=== PATIENT | male | born 1980 | race Caucasian/White ===

== ENCOUNTER → 2022-04-05 08:34 | Outpatient (BNVA) | payer BC, SELFPAY | PROVIDERS: Family Provider Family Medicine; PCP Family Medicine; Visit Provider Family Medicine | DX: Z00.00 Encounter for general adult medical examination without abnormal findings (principal); Z13.6 Encounter for screening for cardiovascular disorders | CPT/HCPCS: 80053; 80061 ==

== ENCOUNTER → 2024-10-02 08:51 | Outpatient (BNVA) | payer BC, SELFPAY | PROVIDERS: Family Provider Family Medicine; PCP Family Medicine; Visit Provider Family Medicine | DX: Z00.00 Encounter for general adult medical examination without abnormal findings (principal); K64.8 Other hemorrhoids | CPT/HCPCS: 80053; 80061; 82607; 83036; 84443; 85025 ==

== ENCOUNTER 2024-10-30 07:57 | Day surgery (SDC) | payer BC, SELFPAY ==
[2024-10-30 08:18] VITALS: BMI 23.7
--- NOTE | 2024-10-30 08:59 | P.ANESASSM_ITS ---
Pre-Anesthetic Assessment Height/Weight: Height 1.88 m Weight 83.915 kg Preop Diagnosis: Hemoorhoids, Melena, Screen Operation Date: 10/30/24 09:30 Proposed Procedures p Colonoscopy 96875 G0105, K64.98 K92.1(Not Applicable) - Isaías Castañeda MD Familial anesthetic complications: Pt. has history of needing bipap in PACU, prolonged emergence with major ortho trauma surgery. Was Beta Italo taken within 24 hours: N/A Was Clonidine taken within 24 hours: N/A Last intake: Intake Last Liquid Date 10/29/24 Last Liquid Time 20:00 Last Solid Date 10/28/24 Last Solid Time 18:00 Social Alcohol (occasional) and No tobacco Exam alert, oriented x 3, clear to auscultation bilaterally and regular rate & rhythm Airway Cervical ROM: within normal limits Mallampati: Class III Dentition: full Comments: Comments: Small mouth opening History/ROS No significant history except as noted Pulmonary None reported CV/HEM None reported None reported Hepatic None reported GI None reported Metabolic None reported Musc/skel None reported Neuropsych None reported Anesthetic Plan ASA status: 1 Anesthesia: MAC Risk of > 500 ml blood loss (7ml/kg in children): No Medications/Allergies Home Medications ?Medication ?Instructions ?Recorded ?Confirmed ?Last Taken ?Type cetirizine 10 mg capsule (Allergy 10 mg PO DAILY PRN A llergy Symptoms 10/11/24 10/24/24 Unknown History Relief (cetirizine)) ondansetron 8 mg disintegrating 8 mg PO Q8H PRN nausea and 10/25/24 10/30/24 Unknown Rx tablet vomiting #3 tabs Allergies Allergy/AdvReac Type Severity Reaction Status Date / Time No Known Allergies Allergy Verified 10/30/24 08:17 Current Medications Generic Name Dose Route Start Last Admin Trade Name Freq PRN Reason Stop Dose Admin Sodium Chloride 1,000 mls @ 15 mls/hr 10/30/24 08:11 10/30/24 08:41 Sodium Chloride 0.9% IV 10/31/24 08:10 15 mls/hr .Q24H PRN Administration COLONOSCOPY FLUIDS PFSH Anesthesia Social History Smoking and tobacco/nicotine status: never used tobacco/nicotine Alcohol intake: never Substance/Drug Use: never Adopted: No Caregiver/support person: No Lives independently: Yes Household members: spouse Housing: House Marital status: Number of children: 3 Highest education level completed: Associate Degree: Academic Program service: No Current occupational status: employed
--- NOTE | 2024-10-30 09:57 | P.ANESASSM_ITS ---
Pre-Anesthetic Assessment Height/Weight: Height 1.88 m Weight 83.915 kg Preop Diagnosis: Hemoorhoids, Melena, Screen Operation Date: 10/30/24 09:30 Proposed Procedures p Colonoscopy 16650 G0105, K64.98 K92.1(Not Applicable) - Isaías Castañeda MD Last intake: Intake Last Liquid Date 10/29/24 Last Liquid Time 20:00 Last Solid Date 10/28/24 Last Solid Time 18:00 Medications/Allergies Home Medications ?Medication ?Instructions ?Recorded ?Confirmed ?Last Taken ?Type cetirizine 10 mg capsule (Allergy 10 mg PO DAILY PRN A llergy Symptoms 10/11/24 10/24/24 Unknown History Relief (cetirizine)) ondansetron 8 mg disintegrating 8 mg PO Q8H PRN nausea and 10/25/24 10/30/24 Unknown Rx tablet vomiting #3 tabs Allergies Allergy/AdvReac Type Severity Reaction Status Date / Time No Known Allergies Allergy Verified 10/30/24 08:17 Current Medications Generic Name Dose Route Start Last Admin Trade Name Freq PRN Reason Stop Dose Admin Sodium Chloride 1,000 mls @ 15 mls/hr 10/30/24 08:11 10/30/24 08:41 Sodium Chloride 0.9% IV 10/31/24 08:10 15 mls/hr .Q24H PRN Administration COLONOSCOPY FLUIDS PFSH Anesthesia Social History Smoking and tobacco/nicotine status: never used tobacco/nicotine Alcohol intake: never Substance/Drug Use: never Adopted: No Caregiver/support person: No Lives independently: Yes Household members: spouse Housing: House Marital status: Number of children: 3 Highest education level completed: Associate Degree: Academic Program service: No Current occupational status: employed
--- NOTE | 2024-10-30 09:59 | W.PM.OPSUD ---
Surgery/Procedure H&P Update DATE OF PROCEDURE: October 30, 2024 DATE H&P PERFORMED: 10/11/24 H&P UPDATE INFORMATION: I have reviewed H&P completed within last 30 days, I have examined patient prior to procedure and No changes to prior documentation PREOP DIAGNOSIS: Hemoorhoids, Melena, Screen PLANNED PROCEDURE: Operation Date: 10/30/24 09:30 Proposed Procedures p Colonoscopy 46820 G0105, K64.98 K92.1(Not Applicable) - Isaías Castañeda MD
--- NOTE | 2024-10-30 10:09 | PC.NURSE ---
Cecum time 1009
[2024-10-30 10:20] VITALS: BP 94/62; PULSE 68; RESP 18; TEMP 36.2; O2SAT 98
[2024-10-30 10:45] VITALS: BP 105/76; PULSE 67; RESP 18; O2SAT 99
--- NOTE | 2024-10-30 10:55 | ANE.PACU2 ---
Inpatient post-anesthesia follow up: Airway intact: Yes Vital signs: Temperature 97.2 F Pulse Rate 67 Respiratory Rate 18 Blood Pressure 105/76 Pulse Oximetry 99 Oxygen Delivery Me thod Room Air Oxygen Flow Rate Fraction of Inspir ed Oxygen Hydration adequate: Yes Nausea and vomiting: No Pain level: 1 Mental status: Baseline
== END 2024-10-30 10:55 | disposition home or self-care (01) ==
PROVIDERS: PCP Family Medicine; Visit Provider Student in an Organized Health Care Education/Training Program
PROC: 0DJD8ZZ Inspection of Lower Intestinal Tract, Via Natural or Artificial Opening Endoscopic (ICD-10-PCS; CPT 45378; principal; 2024-10-30 09:30)
DX: K64.1 Second degree hemorrhoids (principal)
CPT/HCPCS: 45378; J2704; J7030